=== PATIENT | female | born 1965 | race Hispanic/Latino ===

== ENCOUNTER 2018-05-26 09:32 | Outpatient (CLI) | payer OTHER | END 2018-05-26 09:33 | disposition home or self-care (01) | LOC: BICULT 09:32 | PROVIDERS: ATTEND Internal Medicine Cardiovascular Disease | DX: I10 Essential (primary) hypertension (principal) | CPT/HCPCS: 76700; 76770 ==

== ENCOUNTER 2019-05-29 09:41 | Emergency (ER) | payer SELFPAY ==
[2019-05-29 10:44] LABS: Bilirubin Negative (Negative); Blood, Urine Trace (Negative); Clarity Clear (Clear); Glucose, Urine (Dipstick) Negative (Negative); Leukocyte Negative (Negative); Nitrite Negative (Negative); Protein, Urine (Dipstick) 30 mg/dL (Neg-Trace); Urobilinogen 0.2 mg/dL (Less than 2)
[2019-05-29 10:54] LABS: Bacteria/HPF None Seen HPF (None Seen); Epithelial Cast None Seen LPF (None Seen); Mucous/LPF 1+ LPF (<2+); RBC/HPF 0-3 HPF (0-3); Squamous Epithelial 0-3 HPF (0-3); WBC/HPF 0-3 HPF (0-3)
[2019-05-29 10:56] LABS: ALT (SGPT) 30 U/L (8-55); AST (SGOT) 23 U/L (5-34); Alkaline Phosphatase 64 U/L (40-150); Anion Gap 18 mmol/L (10-20); BUN (Urea Nitrogen) 14 mg/dL (9.8-20.1); Bilirubin, Total 0.6 mg/dL (0.2-1.2); Calc. Creatinine Clearance 0 mL/min (70-130); Calcium 9.9 mg/dL (7.8-10.44); Carbon Dioxide 22 mmol/L (22-29); Chloride 100 mmol/L (98-107); Estimated GFR-MDRD 65; Globulin 2.9 g/dL (2.4-3.5); Glucose 182 mg/dL (70-105); Lipase 31 U/L (8-78); Potassium 3.9 mmol/L (3.5-5.1); Protein, Total 7.9 g/dL (6.0-8.3); Sodium 136 mmol/L (136-145)
[2019-05-29 10:59] LABS: #Basophils 0.1 thou/uL (0.0-0.2); #Lymphocytes 0.9 thou/uL (1.20-3.40); #Monocytes 0.7 thou/uL (0.11-0.59); #Neutrophils 12.6 thou/uL (1.40-6.50); %Basophils 0.5 % (0.0-1.0); %Eosinophils 0.1 % (0.0-10.0); %Lymphocytes 6.2 % (21.0-51.0); %Monocytes 5.2 % (0.0-10.0); Hemoglobin 12.1 g/dL (12.0-16.0); Mean Corpuscular HGB CONC 34.9 g/dL (32.0-36.0); Mean Corpuscular Hemoglobin 29.2 pg (27.0-31.0); Mean Corpuscular Volume 83.7 fL (78.0-98.0); Mean Platelet Volume 6.7 fL (7.4-10.4); Platelet Count 264 thou/uL (130-400); RBC Distribution Width 11.9 % (11.5-14.5); Red Blood Cell (RBC) Count 4.13 mill/uL (4.20-5.40); White Blood Cell (WBC) Count 14.3 thou/uL (4.8-10.8)
[2019-05-29] MEDS ORDERED: Pantoprazole 40 MG VIAL ONE (11:10)
[2019-05-29] MEDS ORDERED: Ondansetron PF 4 MG/2 ML Vial ONE (11:10)
--- NOTE | 2019-05-29 12:40 | CT ---
CT Abdomen Pelvis W Con HISTORY: Abdominal pain nausea and vomiting. Diarrhea. COMPARISON: None. FINDINGS: Minimal linear scarring or atelectasis is seen in the right lung base. There are diffuse fatty changes of the liver which measures 17 cm in length. The spleen is within nor mal limits. Pancreas shows no evidence of mass. The gallbladder has been removed. Right and left adrenal glands are normal in appearance hypodensities involving both kidneys are stati stically most likely cysts. No renal calculi. 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 No obstruction. No ureteral calculi. No significant periaortic or mes enteric lymphadenopathy. The colon is decompressed questionable slight bowel wall prominence but this may just be on the basis of decompression questional slight prominence to the wall but no signs of any pericolonic inflammatory process or pneumatosis. CT of pelvis performed with contrast enhancement: The appendix is normal no adenopathy or mass. No significant bony findings. IMPRESSION: 1. Fatty change of liver. 2. Questionable slight wall thickening to the colon. This is probably just on the basis of underdiste ntion given that there is no pericolonic inflammatory process or pneumatosis. Clinical correlation as to any colitis type symptoms would be recommended.
== END 2019-05-29 13:10 | disposition home or self-care (01) ==
LOC: SCSER 09:41
DX: R11.2 Nausea with vomiting, unspecified (principal); R19.7 Diarrhea, unspecified; E78.5 Hyperlipidemia, unspecified; E11.9 Type 2 diabetes mellitus without complications; I10 Essential (primary) hypertension; Z79.899 Other long term (current) drug therapy; Z79.84 Long term (current) use of oral hypoglycemic drugs
CPT/HCPCS: 36416; 74177; 80053; 81003; 81015; 83690; 84484; 85025; 87086; 93005; 96361; 96372; 96374; 96375; C9113; J0500; J2405

== ENCOUNTER 2019-12-06 08:58 | Outpatient (CLI) | payer OTHER ==
--- NOTE | 2019-12-06 10:57 | MMO ---
Bilateral MAMMO Bilat Screen [facility]. CLINICAL HISTORY: Patient is 54 years old and is seen for screening. The patient has the following family history of breast cancer: mother, at age 70, and gi. The patient has no personal history of cancer. The patient has a history of right needle biopsy in May, - benign, left Excisional Biopsy in May, and left Ultrasound Guided Core Biopsy in Mar, 2010. VIEWS: The views performed were: bilateral craniocaudal with tomosynthesis; bilateral mediolateral oblique with tomosynthesis; and bilateral exaggerated craniocaudal. FILMS COMPARED: The present examination has been compared to prior imaging studies performed at [facility] on 02/18/2014, 04/01/2015, 05/12/2016 and 06/08/2017. This study has been interpreted with the assistance of computer-aided detection. MAMMOGRAM FINDINGS: The breasts are heterogeneously dense, which could obscure a lesion on mammography. Finding 1: There are stable benign appearing calcifications seen in both breasts. Finding 2: There are stable benign appearing densities seen in both breasts. There are no suspicious masses, suspicious calcifications, or new areas of architectural distortion. IMPRESSION: THERE IS NO MAMMOGRAPHIC EVIDENCE OF MALIGNANCY. A ROUTINE FOLLOW-UP MAMMOGRAM IN 1 YEAR IS RECOMMENDED. THE RESULTS OF THIS EXAM WERE SENT TO THE PATIENT. ACR BI-RADS Category 2 - Benign finding MAMMOGRAPHY NOTE: 1. A negative mammogram report should not delay a biopsy if a dominant of clinically suspicious mass is present. 2. Approximately 10% to 15% of breast cancers are not detected by mammography. 3. Adenosis and dense breasts may obscure an underlying neoplasm. Reported by: JAZMYN MAGAÑA MD Electonically Signed: [id number]
== END 2019-12-06 08:59 | disposition home or self-care (01) ==
LOC: BICMAMMO 08:58
PROVIDERS: ATTEND Family Medicine
DX: Z12.31 Encounter for screening mammogram for malignant neoplasm of breast (principal); Z91.89 Other specified personal risk factors, not elsewhere classified; Z80.3 Family history of malignant neoplasm of breast
CPT/HCPCS: 77063; 77067